=== PATIENT | female | born 1985 | race Caucasian/White ===

== ENCOUNTER 2016-06-28 08:03 | Emergency (ER) | payer MEDICAID ==
[~2016-06-28] VITALS: Ht 154.9 cm; Wt 108.9 kg
[2016-06-28 08:09] VITALS: BP 119/87
--- NOTE | 2016-06-28 08:15 | NUR ---
PATIENT TO BED 3 AT THIS TIME.
--- NOTE | 2016-06-28 08:25 | NUR ---
DR LANG AT BEDSIDE FOR EXAM
--- NOTE | 2016-06-28 08:26 | NUR ---
RECEIVED PT, C/O CHRONIC COUGH SINCE MARCH. DENIES ANY FEVERS AND CHILLS. DENIES ANY CHEST PAIN OR SOB. LS-CLEAR BILATERALLY. DIMINSHED AT BASES.
[2016-06-28 09:16] VITALS: BP 109/88
--- NOTE | 2016-06-28 09:17 | NUR ---
Patient discharged with v/s stable. Written and verbal after care instructions given and explained. Patient alert, oriented and verbalized understanding of instructions. Ambulatory with steady gait. All questions addressed prior to discharge. ID band removed. Patient advised to follow up with PMD. Rx of COMPA FOOTE given. Patient educated on indication of medication including possible reaction and side effects. Opportunity to ask questions provided and answered.
== END 2016-06-28 09:17 | disposition home or self-care (01) ==
LOC: MED 08:03
DX: R05 Cough (principal)